=== PATIENT | male | born 1950 | race African-American/Black ===

== ENCOUNTER 2016-04-23 21:33 | Emergency (ER) | payer OTHER ==
[~2016-04-23] VITALS: Ht 170.2 cm; Wt 74.0 kg
[~2016-04-23 21:33] MED LIST: ASPI81TA82 PO; CARV3.12 PO; CINA30 PO; DARU600 PO; FERR1TAB7 PO; FOLI1TAB PO; IBUP600T26 PO; IPRAAER IN; METO5TAB PO; MIDO10TA4 PO; NITR.4 SL; NORV100C PO; ROSU40 PO; TENO300 PO; VITA400C59 CHEW; [UNRECOGNIZED DRUG - CODE] PO
[2016-04-23 21:35] VITALS: BP 125/67; PULSE 90; RESP 16; TEMP 97.6; O2SAT 98
[2016-04-23] MEDS ORDERED: VIST50CA PO (21:59)
[2016-04-23] MEDS ORDERED: PRED-503 PO (21:59)
[2016-04-23] MEDS ORDERED: diphenhydrAMINE HCL 50 MG/ML VIAL IM ONE (22:00)
[2016-04-23] MEDS ORDERED: predniSONE 20 MG TAB PO ONE (22:00)
--- NOTE | 2016-04-23 22:14 | PD ---
HPI Chief Complaint: Skin Problem Time Seen by Provider: 22:09 Travel History International Travel<30 days: No Contact w/Intl Traveler<30days: No Traveled to known affect area: No History of Present Illness HPI 65-year-old black male presents to emergency department with complaints of a pruritic rash which she has had for the past week. He states that he has determined that the rash is related to a new body wash. He has subsequently today gone back to his old body wash which was spring. He feels itchy all over. He feels that he has a rash. He has use [id number] calamine lotion without relief. He denies any recent illness. No fever chills. No runny nose cough or congestion. No shortness of breath or wheezing. He does make note that he is an hemodialysis. He had dialysis today which went well. He did not mention this to his dialysis doctor. PFSH Past Medical History Hx Anticoagulant Therapy: Yes (ASA) Arthritis: Yes Asthma: Yes Autoimmune Disease: Yes (HIV) Blood Disorders: No Anxiety: Yes Depression: Yes (AT TIMES WHEN IN PAIN) Heart Rhythm Problems: No Cancer: No Cardiovascular Problems: Yes High Cholesterol: Yes Chemotherapy: No Chest Pain: Yes Congestive Heart Failure: No COPD: Yes Cerebrovascular Accident: No Diabetes: No Diminished Hearing: No Endocrine: No Gastrointestinal Disorders: Yes (HX OF ULCERS, HEARTBURN) GERD: No Glaucoma: Yes (RIGHT EYE) Genitourinary: Yes Hepatitis: No Hiatal Hernia: No Hypertension: Yes Immune Disorder: No Inguinal Hernia: Yes Kidney Stones: No Musculoskeletal: Yes (ARTHRITIS,PVD, TORN MUSCLES RIGHT SHOULDER, LEFT ARM WEAKNESS) Neurologic: Yes (BILATERAL FOOT NUMBNESS) Psychiatric: No Reproductive: No Respiratory: Yes (ASTHMA) Integumentary: Yes (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) Migraines: No Myocardial Infarction: No Radiation Therapy: No Renal Failure: Yes (dialysis three times a week) Seizures: No Sickle Cell Disease: No Sleep Apnea: No Thyroid Disease: No Ulcer: Yes Past Surgical History Abdominal Surgery: No AICD: No Appendectomy: No Body Medical Devices: BULLET LEFT LOWER OF BACK, LEFT ARM FISTULA Cardiac Surgery: No Cholecystectomy: No Ear Surgery: No Endocrine Surgery: No Eye Surgery: No Genitourinary Surgery: No Gynecologic Surgery: No Joint Replacement: No Oral Surgery: No Pacemaker: No Thoracic Surgery: No Other Surgery: Yes Social History Alcohol Use: No Tobacco Use: No Substance Use: No (marijuana IN PAST) Allergies-Medications (Allergen,Severity, Reaction): Coded Allergies: Lidocaine (Verified Allergy, Severe, "NERVOUS REACTION", 04/23/16) LANACAINE ACTUAL ALLERGY Lisinopril (Verified Allergy, Severe, JAW AND LIP SWELLING, 04/23/16) Hydrocodone (Verified Adverse Reaction, Severe, N/V, 04/23/16) Reported Meds & Prescriptions Reported Meds & Active Scripts Active Vistaril (Hydroxyzine Pamoate) 50 Mg Cap 50 Mg PO TID PRN Deltasone (Prednisone) 20 Mg Tab 20 Mg PO BID Ibuprofen 600 Mg Tab 600 Mg PO TID 5 Days Reported Sensipar 30 mg (Cinacalcet) 30 Mg Tab 1 Tab PO DAILY Vitamin D [id number] Mg 400 Mg Chw 400 Mg CHEW Metoclopramide Hcl (Metoclopramide HCl) 5 Mg Tab 5 Mg PO TIDAC Carvedilol 3.125 mg (Carvedilol) 3.125 Mg Tab 1 Tab PO BID Crestor (Rosuvastatin Calcium) 40 Mg Tab 10 Mg PO DAILY Combivent Rerespimat Respimat Aer 1 Inhalation IN DAILY PRN Nitroglycerin Tab 0.4 Mg Sl (Nitroglycerin) 0.4 Mg Subl 0.4 Mg SL DIRECTED PRN Iron (Ferrous Sulfate) 45 Mg Tab 200 Mg PO DAILY Aspir-81 (Aspirin) 81 Mg Tab 81 Mg PO DAILY Midodrine Hcl (Midodrine) 10 Mg Tab 10 Mg PO DIRECTED TAKE ON MONDAY/MONDAY/MONDAY [id number] M1 200 Mg Cap 200 Mg PO DIRECTED TAKE ONE EVERY FOURTH DAY Prezista 600 Mg Tab (Darunavir) 600 Mg Tab 800 Mg PO DAILY Viread (Tenofovir Disoproxil Fumarate) 300 Mg Tab 300 Mg PO WEEKLY TAKES ON MON Folate (Folic Acid) 1 Mg Tab 1 Mg PO DAILY [id number] M2 100 Mg Cap 100 Mg PO DAILY Review of Systems Except as stated in HPI: all other systems reviewed are Neg General / Constitutional: No: Fever, Chills Eyes: No: Blurred Vision HENT: No: Sore Throat, Congestion Cardiovascular: No: Chest Pain or Discomfort, Palpitations Respiratory: No: Cough, Shortness of Breath Gastrointestinal: No: Nausea, Vomiting Skin: Positive Rash, Positive Itching, Positive Lumps Physical Exam Narrative GENERAL: This is a well-nourished, well-developed patient, in no apparent distress. SKIN: The patient has excoriations on his upper extremities. I see no obvious rashes or erythema. He points to several areas on his body but I do not see any obvious rash. Warm and dry. HEAD: Atraumatic. Normocephalic. EYES: PERRL, EOMI, no discharge or injection. No scleral icterus. EARS: Clear NOSE: Nasal turbinates appear normal. THROAT: Mucosa pink and moist. Airway patent. NECK: Trachea midline. supple, moves head freely. LUNGS: Clear to auscultation. CV: Regular in rhythm. ABDOMEN: Soft nontender. EXT: No clubbing cyanosis or edema. Data Data Last Documented VS Vital Signs Date Time Temp Pulse Resp B/P Pulse Ox O2 Delivery O2 Flow Rate FiO2 04/23/16 21:35 97.6 90 16 125/67 98 Orders Diphenhydramine Inj (Benadryl Inj) (04/23/16 22:00) Prednisone (Deltasone) (04/23/16 22:00) MDM Medical Decision Making Medical Screen Exam Complete: Yes Emergency Medical Condition: Yes Medical Record Reviewed: Yes Differential Diagnosis MDM: High Differential diagnoses: Allergic reaction, abrasion, contact dermatitis Narrative Course Patient is given Benadryl 50 mg IM and prednisone 40 mg by mouth. The patient is resting comfortable. He is in no distress. 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 Avoid the old body wash. Contracture normal body wash. Vistaril for itching. Prednisone. Follow-up with your doctor on Monday. Return to the ER if any problems. Med/Other Pt SpecificInfo: Prescription(s) given, Wound Care Scripts Hydroxyzine Pamoate (Vistaril)50 Mg Cap50 Mg PO TID PRN (ITCHING) #30 CAP Ref 0 Prov:Peña Villagomez MD 04/23/16 Prednisone (Deltasone)20 Mg Tab20 Mg PO BID #6 TAB Prov:Peña Villagomez MD 04/23/16 Disposition: 01 DISCHARGE HOME Condition: Stable Giovanni Jolly Apr 23, 2016 22:14
== END 2016-04-23 22:39 | disposition home or self-care (01) ==
LOC: NEPB 21:33
DX: L23.5 Allergic contact dermatitis due to other chemical products (principal); I10 Essential (primary) hypertension; E78.00 Pure hypercholesterolemia, unspecified; N19 Unspecified kidney failure; Z99.2 Dependence on renal dialysis; Z79.82 Long term (current) use of aspirin; Z21 Asymptomatic human immunodeficiency virus [HIV] infection status; Z87.09 Personal history of other diseases of the respiratory system; Z86.59 Personal history of other mental and behavioral disorders; Z86.79 Personal history of other diseases of the circulatory system; Z87.19 Personal history of other diseases of the digestive system; Z86.69 Personal history of other diseases of the nervous system and sense organs; Z87.39 Personal history of other diseases of the musculoskeletal system and connective tissue; Z87.2 Personal history of diseases of the skin and subcutaneous tissue
CPT/HCPCS: 96372; 99283; J1200; J7512